=== PATIENT | male | born 1995 | race Two or more races ===

== ENCOUNTER 2019-03-01 15:30 | Emergency (ER) | payer SELFPAY ==
[~2019-03-01] VITALS: Ht 177.8 cm; Wt 62.5 kg
[2019-03-01 15:30] VITALS: BP 129/81
== END 2019-03-01 16:09 | disposition home or self-care (01) ==
LOC: M ED 15:30
DX: J06.9 Acute upper respiratory infection, unspecified (principal); B34.9 Viral infection, unspecified; F17.210 Nicotine dependence, cigarettes, uncomplicated

== ENCOUNTER 2020-10-31 17:36 | Emergency (ER) | payer OTHER, SELFPAY ==
[~2020-10-31] VITALS: Ht 177.8 cm; Wt 74.2 kg
[2020-10-31 17:36] VITALS: BP 126/78
[2020-10-31] MEDS ORDERED: ESTR2TAB2 (17:46)
[2020-10-31] MEDS ORDERED: SPIR100T3 (17:46)
[2020-10-31 19:40] LABS: GC DNA AMPLIFICATION NEGATIVE (NEGATIVE)
[2020-11-02 11:16] LABS: HEPATITIS B SURFACE ANTIBODY NEGATIVE (POSITIVE); HEPATITIS B SURFACE ANTIGEN NEGATIVE (NEGATIVE); HEPATITIS C VIRUS ABY INDEX 0.1 INDEX (<0.8); HIV 1&2 SCREEN CENTAUR NEGATIVE (NEGATIVE)
[2020-11-05 00:10] LABS: HSV-1 DNA Negative (Negative); HSV-2 DNA Negative (Negative)
== END 2020-10-31 18:31 | disposition home or self-care (01) ==
LOC: M ED 17:36
DX: Z20.2 Contact with and (suspected) exposure to infections with a predominantly sexual mode of transmission (principal); F33.9 Major depressive disorder, recurrent, unspecified; F41.9 Anxiety disorder, unspecified; Z79.899 Other long term (current) drug therapy; F17.210 Nicotine dependence, cigarettes, uncomplicated; F12.20 Cannabis dependence, uncomplicated

== ENCOUNTER 2020-11-05 06:22 | Emergency (ER) | payer OTHER ==
[~2020-11-05] VITALS: Ht 177.8 cm; Wt 72.1 kg
[~2020-11-05 06:22] MED LIST: ESTR2TAB3; SPIR100T3
[2020-11-05] MEDS ORDERED: BOOSTRIX/ADACEL VACCINE (DIPHTH/PERTUSS/ACELL/TETANUS) 0.5ML SYR IM ONE (07:45)
[2020-11-05] MEDS ORDERED: ACETAMINOPHEN 500 MG TAB PO ONE (07:45)
[2020-11-05] MEDS ORDERED: LIDOCAINE W/EPINEPHRINE 1% 20ML VIAL INFIL ONE (07:50)
[2020-11-05 09:49] VITALS: BP 136/89
[2020-11-05] MEDS ORDERED: DERMABOND TOPICAL SKIN ADHESIVE TOP ONE (09:55)
[2020-11-05] MEDS ORDERED: NEOSPORIN OINT 0.9 GM PKT TOP ONE (10:15)
== END 2020-11-05 10:37 | disposition home or self-care (01) ==
LOC: M ED 06:22
DX: S51.811A Laceration without foreign body of right forearm, initial encounter (principal); S50.11XA Contusion of right forearm, initial encounter; S60.511A Abrasion of right hand, initial encounter; W25.XXXA Contact with sharp glass, initial encounter; Y92.008 Other place in unspecified non-institutional (private) residence as the place of occurrence of the external cause; F17.210 Nicotine dependence, cigarettes, uncomplicated; Z79.899 Other long term (current) drug therapy; F12.20 Cannabis dependence, uncomplicated

== ENCOUNTER 2020-11-27 20:16 | Emergency (ER) | payer OTHER ==
[~2020-11-27] VITALS: Ht 177.8 cm; Wt 75.1 kg
[2020-11-27 20:17] VITALS: BP 115/70
== END 2020-11-28 02:50 | disposition left against medical advice (07) ==
LOC: M ED 20:16
DX: Z53.29 Procedure and treatment not carried out because of patient's decision for other reasons (principal)

== ENCOUNTER 2022-05-15 15:20 | Emergency (ER) | payer OTHER ==
[~2022-05-15] VITALS: Ht 177.8 cm; Wt 67.8 kg
[2022-05-15 17:12] VITALS: BP 120/79
== END 2022-05-15 17:17 | disposition home or self-care (01) ==
LOC: M ED 15:20
DX: S52.042A Displaced fracture of coronoid process of left ulna, initial encounter for closed fracture (principal); M25.522 Pain in left elbow; F32.A Depression, unspecified; F41.9 Anxiety disorder, unspecified; Y04.2XXA Assault by strike against or bumped into by another person, initial encounter; Y92.511 Restaurant or cafe as the place of occurrence of the external cause; Y93.89 Activity, other specified; Z79.811 Long term (current) use of aromatase inhibitors; Z79.899 Other long term (current) drug therapy

== ENCOUNTER 2022-09-12 12:22 | Emergency (ER) | payer OTHER ==
[~2022-09-12] VITALS: Ht 177.8 cm; Wt 68.0 kg
[2022-09-12 12:23] VITALS: BP 136/60; TEMP 99.6; O2SAT 99
[2022-09-12] MEDS ORDERED: ESTR40VI2 IM (12:40)
== END 2022-09-12 15:37 | disposition home or self-care (01) ==
LOC: M ED 12:22
DX: B34.1 Enterovirus infection, unspecified (principal); B34.8 Other viral infections of unspecified site; Z79.899 Other long term (current) drug therapy

== ENCOUNTER 2022-12-12 23:34 | Emergency (ER) | payer OTHER ==
[~2022-12-12] VITALS: Ht 177.8 cm; Wt 69.2 kg
[~2022-12-12 23:34] MED LIST changes: +ESTR40VI2 IM
[2022-12-13] MEDS ORDERED: LIDOCAINE 2% MDV 20ML VIAL SC ONE (01:10)
[2022-12-13 01:32] VITALS: BP 100/75; TEMP 98.8; O2SAT 98
== END 2022-12-13 01:59 | disposition home or self-care (01) ==
LOC: M ED 23:34
DX: S00.03XA Contusion of scalp, initial encounter (principal); S01.01XA Laceration without foreign body of scalp, initial encounter; Y04.0XXA Assault by unarmed brawl or fight, initial encounter; Y92.009 Unspecified place in unspecified non-institutional (private) residence as the place of occurrence of the external cause

== ENCOUNTER 2023-07-26 21:13 | Emergency (ER) | payer OTHER, SELFPAY ==
[~2023-07-26] VITALS: Ht 177.8 cm; Wt 63.7 kg
[2023-07-26 21:14] VITALS: BP 112/81; TEMP 97.3; O2SAT 99
== END 2023-07-27 00:01 | disposition home or self-care (01) ==
LOC: M ED 21:13
DX: S09.90XA Unspecified injury of head, initial encounter (principal); X58.XXXA Exposure to other specified factors, initial encounter; Y92.9 Unspecified place or not applicable; Y93.9 Activity, unspecified; Y99.9 Unspecified external cause status; F41.9 Anxiety disorder, unspecified; F32.9 Major depressive disorder, single episode, unspecified; J30.2 Other seasonal allergic rhinitis; Z79.890 Hormone replacement therapy; Z79.899 Other long term (current) drug therapy

== ENCOUNTER 2023-09-29 08:33 | Emergency (ER) | payer OTHER, SELFPAY ==
[~2023-09-29] VITALS: Ht 177.8 cm; Wt 64.6 kg
[2023-09-29 09:32] LABS: RSV AMPLIFICATION NEGATIVE (NEGATIVE)
[2023-09-29] MEDS ORDERED: KETOROLAC 30 MG/ML 1ML VIAL IV ONE (10:25)
[2023-09-29] MEDS ORDERED: PSEU1TAB3 PO (10:40)
[2023-09-29] MEDS ORDERED: FLON1SPR NARES (10:40)
[2023-09-29 10:48] VITALS: BP 123/78; TEMP 98.1; O2SAT 98
== END 2023-09-29 11:14 | disposition home or self-care (01) ==
LOC: M ED 08:33
DX: J30.9 Allergic rhinitis, unspecified (principal); J01.90 Acute sinusitis, unspecified; Z79.899 Other long term (current) drug therapy

== ENCOUNTER 2023-10-04 16:43 | Emergency (ER) | payer SELFPAY ==
[~2023-10-04 16:43] MED LIST changes: +FLON1SPR NARES; +PSEU1TAB3 PO
== END 2023-10-04 16:50 | disposition left against medical advice (07) ==
LOC: M ED 16:43
DX: Z53.21 Procedure and treatment not carried out due to patient leaving prior to being seen by health care provider (principal)

== ENCOUNTER 2024-02-25 15:44 | Emergency (ER) | payer OTHER, SELFPAY ==
[~2024-02-25] VITALS: Ht 177.8 cm; Wt 67.6 kg
[2024-02-25 15:46] VITALS: BP 123/86; TEMP 97.3; O2SAT 97
[2024-02-25] MEDS ORDERED: AMOX500C PO (16:41)
[2024-02-25] MEDS: CEPACOL LOZENGE MT ONE (17:05)
[2024-02-25] MEDS ORDERED: [UNRECOGNIZED DRUG - CODE] MT (18:37)
== END 2024-02-25 18:49 | disposition home or self-care (01) ==
LOC: M ED 15:44
DX: J02.9 Acute pharyngitis, unspecified (principal); J30.2 Other seasonal allergic rhinitis; Z79.890 Hormone replacement therapy

== ENCOUNTER 2024-03-06 18:11 | Emergency (ER) | payer OTHER ==
[~2024-03-06] VITALS: Ht 177.8 cm; Wt 63.7 kg
[~2024-03-06 18:11] MED LIST changes: +AMOX500C PO; +[UNRECOGNIZED DRUG - CODE] MT
[2024-03-06 18:18] VITALS: BP 125/74; TEMP 97.5; O2SAT 97
== END 2024-03-06 20:27 | disposition home or self-care (01) ==
LOC: M ED 18:11
DX: R11.2 Nausea with vomiting, unspecified (principal); B34.8 Other viral infections of unspecified site; F41.9 Anxiety disorder, unspecified; F32.A Depression, unspecified; J30.2 Other seasonal allergic rhinitis; F17.200 Nicotine dependence, unspecified, uncomplicated